=== PATIENT | female | born 1975 | race African-American/Black ===

== ENCOUNTER 2017-05-26 17:05 | Emergency (ER) | payer MEDICAID ==
[~2017-05-26] VITALS: Ht 165.1 cm; Wt 91.8 kg
[2017-05-26] MEDS ORDERED: ACET-2116 PO (17:09)
[2017-05-26] MEDS ORDERED: LISI-661 PO (17:09)
[2017-05-26] MEDS ORDERED: ACET-2247 PO (17:17)
[2017-05-26 17:49] LABS: INFLUENZA TYPE A NEGATIVE FOR TYPE A (NEGATIVE); INFLUENZA TYPE B NEGATIVE FOR TYPE B (NEGATIVE)
[2017-05-26] MEDS ORDERED: ACETAMINOPHEN 500 MG TABLET PO ONE (18:45)
[2017-05-26] MEDS ORDERED: SODIUM CHLORIDE 0.9% 1,000 ML IV ONE (18:45)
[2017-05-26 19:16] VITALS: BP 177/98
== END 2017-05-26 20:01 | disposition home or self-care (01) ==
LOC: EDBD 17:08 → EMS 17:08
DX: J02.9 Acute pharyngitis, unspecified (principal); R51 Headache; M79.1 Myalgia; I10 Essential (primary) hypertension; F17.210 Nicotine dependence, cigarettes, uncomplicated
CPT/HCPCS: 87804; 96360; 99284; 99406; J7030

== ENCOUNTER 2018-07-28 16:52 | Inpatient (IN) | payer MEDICAID ==
[~2018-07-28] VITALS: Ht 167.6 cm; Wt 103.7 kg
[~2018-07-28 16:52] MED LIST: ACET-2247 PO; LISI-661 PO
[2018-07-28] MEDS ORDERED: ZOLPIDEM TARTRATE 10 MG TABLET PO PRN (19:30)
[2018-07-28] MEDS ORDERED: QUEtiapine FUMARATE 100 MG TABLET PO PRN (19:30)
[2018-07-28] MEDS ORDERED: LORazepam 2 MG TABLET PO PRN (19:30)
[2018-07-28 21:22] VITALS: BP 117/63
[2018-07-28 21:24] LABS: GLUCOMETER DEV NAME(LOC) BV2X.; GLUCOSE,POINT OF CARE 100 MG/DL (70-110)
[2018-07-28] MEDS: GABAPENTIN 300 MG CAPSULE PO SCH (21:50)
[2018-07-29 04:54] VITALS: BP 112/72
[2018-07-29] MEDS ORDERED: PNEUMOCOCCAL VACCINE POLYVALENT 0.5 ML VIAL [PPSV23] IM ONE (07:15)
[2018-07-29 08:15] VITALS: BP 124/92
[2018-07-29 08:32] VITALS: BP 124/92
[2018-07-29 08:49] LABS: BASOPHILS % (AUTO) 0.6 % (0.0-2.0); EOSINOPHILS % (AUTO) 1.4 % (1.0-6.0); HEMATOCRIT 42.5 % (36-46); HEMOGLOBIN 13.8 g/dL (12.0-16.0); LYMPHOCYTES # (AUTO) 2.8 K/uL (1.0-4.8); LYMPHOCYTES % (AUTO) 35.2 % (22.0-44.0); MEAN CORPUSCULAR HEMOGLOBIN 26.8 pg (26.0-34.0); MEAN CORPUSCULAR HGB CONC 32.4 G/dL (31.0-37.0); MEAN CORPUSCULAR VOLUME 83 fL (80-100); MONOCYTES # (AUTO) 0.7 K/uL (0.1-1.0); MONOCYTES % (AUTO) 9.6 % (2.0-9.0); NEUTROPHILS # (AUTO) 4.2 K/uL (1.8-7.7); NEUTROPHILS % (AUTO) 53.2 % (40.0-70.0); PLATELET COUNT (AUTO) 297 K/uL (150-450); RED BLOOD CELL COUNT(AUTO) 5.14 MIL/uL (4.00-5.20)
[2018-07-29] MEDS ORDERED: FLUoxetine HCL 20 MG CAPSULE PO SCH (09:00)
[2018-07-29 09:11] LABS: HEMOGLOBIN A1C 5.6 % (4.5-6.2)
[2018-07-29 09:37] LABS: ALANINE AMINOTRANSFERASE 16 U/L (12-78); ALBUMIN 3.4 g/dL (3.4-5.0); ALKALINE PHOSPHATASE 94 U/L (46-116); ANION GAP 11 mmol/L (8-16); ASPARTATE AMINOTRANSFERASE 17 U/L (15-37); BILIRUBIN,TOTAL 0.6 mg/dL (0.1-1.0); CALCIUM, TOTAL 9.1 mg/dL (8.8-10.5); CARBON DIOXIDE 25 mmol/L (22-29); CHLORIDE 106 mmol/L (98-107); CHOL/HDL RATIO 3.6 (3.9-5.7); CHOLESTEROL 142 mg/dL (131-200); CREATININE 1.13 mg/dL (0.60-1.30); FREE T4 (FREE THYROXINE) 1.19 ng/dL (0.76-1.46); GLOMERULAR FILTR. RATE CALC > 60 mL/min (>60); GLUCOSE,RANDOM 78 mg/dL (70-110); HCG,QUANTITATIVE < 1 mIU/mL (0-6); HDL CHOLESTEROL 39 mg/dL (40-60); LDL CHOL (CALC.) 94 mg/dL (0-130); POTASSIUM 4.7 mmol/L (3.5-5.1); SODIUM SERUM 142 mmol/L (136-145); THYROID STIMULATING HORMONE 0.56 uIU/mL (0.36-3.74); TOTAL PROTEIN, SERUM 6.5 g/dL (6.4-8.2); TRIGLYCERIDES 45 mg/dL (15-150); UREA NITROGEN, BLOOD 14 mg/dL (7-18)
[2018-07-29] MEDS: GABAPENTIN 300 MG CAPSULE PO SCH (09:48)
[2018-07-29] MEDS: TRIAMCINOLONE 0.1% 15 GM CREAM TP SCH ×2 (09:48→16:21)
[2018-07-29] MEDS: NICOTINE 21 MG/24 HOUR PATCH TD SCH (10:15)
[2018-07-29] MEDS ORDERED: LOPERAMIDE HCL 2 MG CAPSULE PO PRN (13:15)
[2018-07-29] MEDS ORDERED: HydrOXYzine PAMOATE 50 MG CAPSULE PO PRN (13:15)
[2018-07-29] MEDS ORDERED: MAGNESIUM HYDROXIDE SUSPENSION 30 ML UDCUP PO PRN (13:15)
[2018-07-29] MEDS ORDERED: ACETAMINOPHEN 325 MG TABLET PO PRN (13:15)
[2018-07-29] MEDS ORDERED: GuaiFENesin/D-METHORPHAN [SUGAR-FREE] 200-20MG/10 ML SYRUP UDCUP PO PRN (13:15)
[2018-07-29] MEDS ORDERED: MAG HYDROX/AL HYDROX/SIMETH ES 30 ML SUSPENSION UDCUP PO PRN (13:15)
[2018-07-29] MEDS ORDERED: OLANZapine 5 MG RAPDIS TABLET PO PRN (13:15)
[2018-07-29] MEDS ORDERED: PROMETHAZINE HCL 25 MG TABLET PO PRN (13:15)
[2018-07-29] MEDS ORDERED: TUBERCULIN, PURIFIED PROTEIN DERIVATIVE 5 TU/0.1 ML SYRINGE ID ONE (13:15)
[2018-07-29] MEDS: THIAMINE HCL 100 MG TABLET PO SCH (16:20)
[2018-07-29 16:23] VITALS: BP 111/66
[2018-07-29] MEDS ORDERED: GABAPENTIN 300 MG CAPSULE PO PRN (16:45)
[2018-07-29] MEDS ORDERED: GABAPENTIN 300 MG CAPSULE PO SCH (17:00)
[2018-07-29] MEDS: GABAPENTIN 400 MG CAPSULE PO SCH (20:44)
[2018-07-29] MEDS ORDERED: OLANZapine 5 MG RAPDIS TABLET PO SCH (21:00)
[2018-07-30 01:34] VITALS: BP 135/81
[2018-07-30] MEDS: MULTIVITAMINS WITH MINERALS, THERAPEUTIC TABLET PO SCH (08:48)
[2018-07-30] MEDS: THIAMINE HCL 100 MG TABLET PO SCH ×2 (08:48→16:52)
[2018-07-30] MEDS: FOLIC ACID 1 MG TABLET PO SCH (08:48)
[2018-07-30] MEDS: BuPROPion HCL XL 150 MG ER TABLET PO SCH (08:48)
[2018-07-30] MEDS: NICOTINE 21 MG/24 HOUR PATCH TD SCH (08:49)
[2018-07-30] MEDS: GABAPENTIN 400 MG CAPSULE PO SCH ×2 (08:49→12:52)
[2018-07-30] MEDS: TRIAMCINOLONE 0.1% 15 GM CREAM TP SCH ×2 (08:49→16:52)
[2018-07-30] MEDS: NALTREXONE HCL 50 MG TABLET PO SCH (08:49)
[2018-07-30 08:54] VITALS: BP 119/69
[2018-07-30 16:44] VITALS: BP 125/75
[2018-07-30] MEDS: GABAPENTIN 300 MG CAPSULE PO SCH (16:51)
[2018-07-31 00:20] VITALS: BP 140/76
[2018-07-31] MEDS: FOLIC ACID 1 MG TABLET PO SCH (08:04)
[2018-07-31] MEDS: NICOTINE 21 MG/24 HOUR PATCH TD SCH (08:04)
[2018-07-31] MEDS: GABAPENTIN 300 MG CAPSULE PO SCH ×3 (08:04→16:53)
[2018-07-31] MEDS: BuPROPion HCL XL 150 MG ER TABLET PO SCH (08:04)
[2018-07-31] MEDS: MULTIVITAMINS WITH MINERALS, THERAPEUTIC TABLET PO SCH (08:04)
[2018-07-31] MEDS: THIAMINE HCL 100 MG TABLET PO SCH ×2 (08:04→16:53)
[2018-07-31 08:11] VITALS: BP 164/99
[2018-07-31] MEDS: NALTREXONE HCL 50 MG TABLET PO SCH (09:01)
[2018-07-31] MEDS: TRIAMCINOLONE 0.1% 15 GM CREAM TP SCH ×2 (09:01→16:54)
[2018-07-31 11:21] VITALS: BP 142/84
[2018-07-31] MEDS ORDERED: BUPR-47 PO (15:13)
[2018-07-31] MEDS ORDERED: GABA-531 PO (15:13)
[2018-07-31] MEDS ORDERED: MIRT15 PO (15:13)
[2018-07-31] MEDS ORDERED: NALT50TA PO (15:13)
[2018-07-31 16:52] VITALS: BP 135/84
[2018-07-31] MEDS ORDERED: MIRTAZAPINE 15 MG TABLET PO SCH (21:00)
[2018-08-01 05:44] VITALS: BP 149/85
[2018-08-01] MEDS ORDERED: CLON-570 PO (07:25)
[2018-08-01] MEDS ORDERED: BUPR-93 PO (08:11)
[2018-08-01] MEDS ORDERED: NALT50TA6 PO (08:11)
[2018-08-01] MEDS ORDERED: GABA-531 PO (08:11)
[2018-08-01] MEDS ORDERED: MIRT15 PO (08:11)
[2018-08-01] MEDS ORDERED: TRIA15CR45 TP (08:14)
[2018-08-01] MEDS ORDERED: CloNIDine HCL 0.1 MG TABLET PO SCH (09:00)
[2018-08-01 09:03] VITALS: BP 159/99
[2018-08-01] MEDS: FOLIC ACID 1 MG TABLET PO SCH (09:34)
[2018-08-01] MEDS: NALTREXONE HCL 50 MG TABLET PO SCH (09:34)
[2018-08-01] MEDS: MULTIVITAMINS WITH MINERALS, THERAPEUTIC TABLET PO SCH (09:34)
[2018-08-01] MEDS: GABAPENTIN 300 MG CAPSULE PO SCH (09:34)
[2018-08-01] MEDS: BuPROPion HCL XL 150 MG ER TABLET PO SCH (09:34)
[2018-08-01] MEDS: NICOTINE 21 MG/24 HOUR PATCH TD SCH (09:34)
[2018-08-01] MEDS: THIAMINE HCL 100 MG TABLET PO SCH (09:34)
[2018-08-01] MEDS: TRIAMCINOLONE 0.1% 15 GM CREAM TP SCH (09:37)
== END 2018-08-01 11:30 | disposition home or self-care (01) | DRG 751 ==
LOC: B2S 19:22
PROVIDERS: ADMIT Psychiatry & Neurology Psychiatry; ATTEND Psychiatry & Neurology Psychiatry
DX: F33.9 Major depressive disorder, recurrent, unspecified (principal); G62.9 Polyneuropathy, unspecified; F15.10 Other stimulant abuse, uncomplicated; F17.200 Nicotine dependence, unspecified, uncomplicated; E66.9 Obesity, unspecified; Z81.8 Family history of other mental and behavioral disorders; Z59.0 Homelessness; Z82.49 Family history of ischemic heart disease and other diseases of the circulatory system; Z91.19 Patient's noncompliance with other medical treatment and regimen; Z68.36 Body mass index [BMI] 36.0-36.9, adult; Z28.21 Immunization not carried out because of patient refusal
CPT/HCPCS: 83036; 84439; 84443; 87081